=== PATIENT | female | born 1995 | race American Indian/Alaskan Native ===

== ENCOUNTER 2017-02-12 15:48 | Outpatient (CLI) | payer MEDICAID ==
[2017-02-12] MEDS ORDERED: LACTATED RINGERS 500 ML IV ONE (17:45)
[2017-02-12 18:38] VITALS: BP 97/63
== END 2017-02-12 21:00 | disposition home or self-care (01) ==
LOC: EDSTATUS 16:16 → TRG 16:27
PROVIDERS: ATTEND Obstetrics & Gynecology
DX: O9A.312 Physical abuse complicating pregnancy, second trimester (principal); Z3A.27 27 weeks gestation of pregnancy
CPT/HCPCS: 96360; J7120

== ENCOUNTER 2017-03-12 01:05 | Outpatient (CLI) | payer MEDICAID ==
[2017-03-12 01:19] VITALS: BP 115/75
[2017-03-12 02:08] LABS: Bilirubin,Urine NEG (Negative); Blood,Urine NEG (Negative); Ketones,Urine NEG (Negative); Leukocyte Esterase,Urine TR (Negative); Mucus,Urine FEW /HPF; Nitrite,Urine NEG (Negative); Urobilinogen,Urine < 2.0 mg/dL (<2.0)
[2017-03-12] MEDS ORDERED: LACTATED RINGERS 1,000 ML IV SCH (02:11)
== END 2017-03-12 03:36 | disposition home or self-care (01) ==
LOC: TRG 01:05
PROVIDERS: ATTEND Obstetrics & Gynecology
DX: O47.03 False labor before 37 completed weeks of gestation, third trimester (principal); Z3A.31 31 weeks gestation of pregnancy
CPT/HCPCS: 81001; 96360; J7120

== ENCOUNTER 2017-05-05 18:19 | Outpatient (CLI) | payer MEDICAID ==
--- NOTE | 2017-05-06 07:38 | Ultrasound Report ---
ULTRASOUND OB LIMITED History: well being, evaluate amniotic fluid Technique: Transabdominal ultrasound with Doppler interrogation. Gestation: Single Position: Cephalic Amniotic Fluid: Normal LINDA = 14.5 cm Heart Rate: 128 BPM
[2017-05-06] MEDS ORDERED: NACL ONE (17:47)
== END 2017-05-05 20:00 | disposition home or self-care (01) ==
LOC: TRG 18:19
PROVIDERS: ATTEND Obstetrics & Gynecology
DX: O47.1 False labor at or after 37 completed weeks of gestation (principal); Z3A.39 39 weeks gestation of pregnancy
CPT/HCPCS: 76815

== ENCOUNTER 2017-05-11 06:18 | Outpatient (CLI) | payer MEDICAID ==
[2017-05-11 07:30] VITALS: BP 117/49
[2017-05-11] MEDS ORDERED: VISTARIL PO ONE (09:43)
== END 2017-05-11 09:52 | disposition home or self-care (01) ==
LOC: TRG 06:18
PROVIDERS: ATTEND Obstetrics & Gynecology
DX: O47.03 False labor before 37 completed weeks of gestation, third trimester (principal); Z3A.39 39 weeks gestation of pregnancy
CPT/HCPCS: 59025

== ENCOUNTER 2018-01-22 07:57 | Inpatient (IN) | payer MEDICAID ==
[2018-01-22] MEDS ORDERED: NACL 0.9% 1000 ML 1,000 ML IV ONE ×2 (08:37→11:14)
[2018-01-22] MEDS ORDERED: ZOFRAN IV ONE (08:40)
[2018-01-22] MEDS ORDERED: BENADRYL IV ONE (08:51)
[2018-01-22] MEDS ORDERED: REGLAN IV ONE (08:51)
[2018-01-22 08:53] LABS: Hematocrit 44.2 % (30.3-42.9); Hemoglobin 15.2 gm/dl (10.1-14.3); Mean Corpuscular HGB Conc 34 % (30-34); Mean Corpuscular Hemoglobin 29 pg (28-32); Mean Corpuscular Volume 84 fl (79-97); Platelet Count 197 K/mm3 (140-440); Red Blood Count 5.24 M/mm3 (3.65-5.03); Red Cell Distribution Width 13.3 % (13.2-15.2)
[2018-01-22 09:02] LABS: Bilirubin,Urine NEG (Negative); Blood,Urine NEG (Negative); Color,Urine Yellow (Yellow); Mucus,Urine 2+ /HPF; Protein,Urine <15 mg/dL mg/dL (Negative); Urobilinogen,Urine < 2.0 mg/dL (<2.0)
[2018-01-22 09:05] LABS: Albumin 4.6 g/dL (3.9-5); BUN/Creatinine Ratio 32; Blood Urea Nitrogen 19 mg/dL (7-17); Calcium 9.3 mg/dL (8.4-10.2); Hemolysis Index 330
[2018-01-22 09:15] LABS: Alanine Aminotransferase TNR units/L (7-56); Bilirubin,Direct TNR mg/dL (0-0.2)
[2018-01-22 09:42] LABS: Basophils % (Manual) 0 % (0.0-1.8); Eosinophils % (Manual) 0 % (0.0-4.3); RBC Morphology Normal; Total Cells Counted 100
[2018-01-22 10:36] LABS: Lipase 31 units/L (13-60)
--- NOTE | 2018-01-22 10:39 | Emergency Department Report ---
ED Headache HPI - General Chief Complaint: Headache Stated Complaint: HEADACHE Time Seen by Provider: 01/22/18 08:36 - History of Present Illness Initial Comments: 22-year-old female past medical history none presents with complaint of intermittent headaches and nausea which woke her up out of sleep at approximately 1 AM. Patient also complains of body aches and abdominal pain. Denies any vaginal discharge increased urinary frequency or dysuria. Denies any chest pain palpitations or shortness of breath. States she feels slightly weak and dizzy, some associated nausea. Patient is awake alert and oriented 3. Denies any nuchal rigidity. Is able to flex and extend neck without difficulty. Some subjective fever & chills. States one of her family members was recently diagnosed with influenza within the last week and she had contact with them. Also c/o sore throat. Denies any true photophobia phonophobia. Denies any head or abdominal trauma. Patient is ambulatory without assistance. Accompanied by significant other at bedside. Patient is complaining of lower abdominal pain. Has multiple complaints. Patient denies any earache. Timing/Duration: other (8 hours) Head Injury Location: frontal Allergies/Adverse Reactions: Allergies No Known Allergies Allergy (Unverified 02/12/17 17:45) Home Medications: Ambulatory Orders No Known Home Medications [No Reported Home Medications] 01/22/18 ED Review of Systems ROS: Stated complaint: HEADACHE Other details as noted in HPI Constitutional: fever, malaise. denies: chills Eyes: denies: eye pain, eye discharge, vision change ENT: denies: ear pain, throat pain Respiratory: denies: cough, shortness of breath, wheezing Cardiovascular: denies: chest pain, palpitations Endocrine: no symptoms reported Gastrointestinal: abdominal pain, nausea. denies: diarrhea Genitourinary: denies: urgency, dysuria, discharge Musculoskeletal: denies: back pain, joint swelling, arthralgia Skin: denies: rash, lesions Neurological: headache. denies: weakness, paresthesias Psychiatric: denies: anxiety, depression Hematological/Lymphatic: denies: easy bleeding, easy bruising ED Past Medical Hx - Past Medical History Previous Medical History?: No Hx Hypertension: No Hx Congestive Heart Failure: No Hx Diabetes: No Hx Deep Vein Thrombosis: No Hx Renal Disease: No Hx Sickle Cell Disease: No Hx Seizures: No Hx Asthma: No Hx COPD: No Hx HIV: No - Surgical History Past Surgical History?: Yes Additional Surgical History: x 1 - Social History Smoking Status: Current Every Day Smoker Substance Use Type: None - Medications Home Medications: Home Medications Medication Instructions Recorded Confirmed Last Taken Type No Known Home Medications [No 01/22/18 01/22/18 Unknown History Reported Home Medications] ED Physical Exam - General Limitations: No Limitations General appearance: alert, in no apparent distress - Head Head exam: Present: atraumatic, normocephalic - Eye Eye exam: Present: normal appearance, PERRL, EOMI - ENT ENT exam: Present: mucous membranes moist - Neck Neck exam: Present: normal inspection, full ROM (neck flexion and extension is intact there is no nuchal rigidity on clinical exam) - Respiratory Respiratory exam: Present: normal lung sounds bilaterally (lungs clear to auscultation bilaterally). Absent: respiratory distress - Cardiovascular Cardiovascular Exam: Present: regular rate, normal rhythm. Absent: systolic murmur, diastolic murmur, rubs, gallop - GI/Abdominal GI/Abdominal exam: Present: soft (some right lower quadrant/suprapubic discomfort on deep palpation, negative iliopsoas, negative Shepard's sign and right upper quadrant), normal bowel sounds - External exam: Present: normal external exam Speculum exam: Present: vaginal discharge (slightly white vaginal discharge on pelvic exam) Bi-manual exam: Present: normal bi-manual exam (cervical motion tenderness no adnexal tenderness noted on exam) - Extremities Exam Extremities exam: Present: normal inspection - Back Exam Back exam: Present: normal inspection - Neurological Exam Neurological exam: Present: alert, oriented X3, CN II-XII intact, normal gait - Expanded Neurological Exam Expanded Patient oriented to: Present: person, place, time Cranial nerves: EOM's Intact: Normal, Facial Sensation: Normal Cerebellar function: Finger to Nose: Normal, Heel to Freire: Normal, Romberg: Normal Sensory exam: Upper Extremity Light Touch: Normal, Lower Extremity Light Touch: Normal Motor strength exam: RUE: 5, LUE: 5, RLE: 5, LLE: 5 Best Eye Response ([place]): (4) open spontaneously Best Motor Response ([place]): (6) obeys commands Best Verbal Response ([place]): (5) oriented Ingrid Total: 15 - Psychiatric Psychiatric exam: Present: normal affect, normal mood - Skin Skin exam: Present: warm, dry, intact, normal color. Absent: rash ED Course Vital Signs 01/22/18 01/22/18 01/22/18 08:07 10:40 10:46 Temperature 99.8 F H 101.3 F H Pulse Rate 103 H 109 H Respiratory 16 Rate Blood Pressure 104/64 86/45 Blood Pressure [Left] O2 Sat by Pulse 97 97 Oximetry 01/22/18 11:22 Temperature Pulse Rate 104 H Respiratory 18 Rate Blood Pressure Blood Pressure 104/59 [Left] O2 Sat by Pulse 99 Oximetry ED Medical Decision Making - Lab Data Result diagrams: 01/22/18 08:41 01/22/18 11:17 - Medical Decision Making A/P: SIRS criteria, sepsis, abdominal pain, headache, possible flulike viral syndrome, concern for appendicitis 1-case discussed with ED attending Dr Chi and Hospitalist Dr. Dhaliwal 2-as patient has exhibited tachycardia with episode of hypotension and presence of fever and suspected viral syndrome versus suspected appendicitis secondary to abdominal pain on exam I am clinically concerned about this patient. 3-discussed case with Dr. Carlos. CT shows no direct evidence of appendicitis. No periappendiceal inflammation. However appendix is not directly visualized. As patient will be admitted and further managed and monitored Dr. Carlos will follow and possibly repeat CT. As per her exam unlikely appendicitis at this time 4- as patient meets SIRS criteria and sepsis given leukocytosis fever or hypotension and tachycardia will cover her empirically with vancomycin and Zosyn. As patient has had recent positive exposure to influenza despite negative influenza test I will cover her empirically with Tamiflu as she is being admitted to the hospital 5- IV fluid resuscitation. Patient has received 2 L bolus and I ordered maintenance fluid 6- patient is in agreement with clinical plan. Pelvic exam is unremarkable, pelvic ultrasound is unremarkable, Chlamydia and gonorrhea cultures sent, urinalysis urine culture and blood cultures sent. Critical care attestation.: If time is entered above; I have spent that time in minutes in the direct care of this critically ill patient, excluding procedure time. ED Disposition Clinical Impression: SIRS (systemic inflammatory response syndrome), Viral syndrome Sepsis Qualifiers: Sepsis type: sepsis due to unspecified organism Qualified Code(s): A41.9 - Sepsis, unspecified organism Abdominal pain Qualifiers: Abdominal location: right lower quadrant Qualified Code(s): R10.31 - Right lower quadrant pain Headache Qualifiers: Headache type: unspecified Headache chronicity pattern: acute headache Intractability: not intractable Qualified Code(s): R51 - Headache Disposition: DC-09 OP ADMIT IP TO THIS HOSP Is pt being admited?: No Does the pt Need Aspirin: No Condition: Stable Referrals: PRIMARY CARE, [Primary Care Provider] - 3-5 Days Time of Disposition: 15:13
--- NOTE | 2018-01-22 10:49 | Cat Scan Report ---
CT HEAD WITHOUT CONTRAST INDICATION: Acute frontal throbbing headache. COMPARISON: None similar. FINDINGS: Noncontrast head CT demonstrates normal ventricles and sulci without acute or recent infarct, hemorrhage, mass effect or midline shift. No abnormal extra-axial fluid collections. Posterior fossa structures and basilar cisterns appear within normal limits. Symmetric eye globes. Clear paranasal sinuses and mastoid air cells. Mild leftward nasal septal deviation. Intact calvarium. Normal overlying scalp soft tissues. Few radiopaque dental material and a left nasal piercing ornament incidentally noted. CONCLUSION: No acute intracranial CT abnormality, as described. Thank you for the opportunity to participate in this patient's care.
--- NOTE | 2018-01-22 10:56 | Cat Scan Report ---
CT ABDOMEN AND PELVIS WITH CONTRAST INDICATION: Right lower quadrant pain. Evaluate for appendicitis. COMPARISON: None similar. FINDINGS: Abdomen and pelvis CT performed following intravenous administration of 100 cc of Omnipaque 300. LUNG BASES: Slight nonspecific distal esophageal wall prominence/thickening, not excluded for gastroesophageal reflux and/or hiatal hernia, amongst others. ABDOMEN: Left hepatic lobe tip extends into the left upper quadrant. Right hepatic lobe approximately 17.5 cm in midclavicular length. Otherwise unremarkable liver, spleen, gallbladder, pancreas, adrenals, aorta, IVC and kidneys. Nonopacified GI tract evaluation limited, though grossly nonobstructive. Cecum low-lying in the right hemipelvis with mild stool throughout colon/slight constipation. Positive appendix identification difficult in this setting, though no acute inflammatory changes noted in that region. No ascites or size significant adenopathy. PELVIS: Uterus, adnexa/ovaries, urinary bladder and the rectosigmoid suggest physiologic CT appearance. Small left pelvic phlebolith. No free fluid or significant adenopathy. CONCLUSION: No definite acute CT abnormality with few incidental findings as slight distal esophageal prominence/thickening, low-lying cecum in the right hemipelvis and a slightly prominent liver, as described. Please also correlate clinically and with laboratory values. Thank you for the opportunity to participate in this patient's care.
[2018-01-22 11:43] LABS: Alanine Aminotransferase 9 units/L (7-56); BUN/Creatinine Ratio 30; Bilirubin,Direct 0.2 mg/dL (0-0.2); Blood Urea Nitrogen 18 mg/dL (7-17); Calcium 8.3 mg/dL (8.4-10.2); Hemolysis Index 7
[2018-01-22] MEDS ORDERED: VANCOMYCIN/NS 1 GM/250 ML 1 GM/250 ML BAG IV ONE (12:28)
--- NOTE | 2018-01-22 12:45 | Ultrasound Report ---
ULTRASOUND PELVIS DUPLEX DOPPLER COMPLETE - TRANSABDOMINAL AND TRANSVAGINAL: INDICATION: Right-sided adnexal pain. COMPARISON: None similar. FINDINGS: Transabdominal and transvaginal pelvic sonography with spectral Doppler performed in this patient demonstrates a homogenous, anteverted 8.4 x 2.9 x 3.5 cm uterus with endometrial thickness of 0.4 cm, endovaginal image 8. Minimal physiologic pelvic free fluid. Normal imaged urinary bladder. Right ovary is 2.1 x 1.8 x 2 cm and suggests a 1.3 x 0.8 cm peripheral slightly complex hypoechoic cyst, image endovaginal image 24. A 2.8 x 2.1 x 1.4 cm left ovary also suggests possible 2 small slightly complex hypoechoic cysts measuring up to 1.4 x 1 cm, endovaginal image 32. Preserved bilateral ovarian blood flow. CONCLUSION: Physiologic pelvic sonogram, as described. Thank you for the opportunity to participate in this patient's care.
[2018-01-22] MEDS ORDERED: ZOSYN/NS 4.5GM/100ML 4.5 GM/100 ML VIAL IV ONE (13:00)
[2018-01-22] MEDS ORDERED: VANCOMYCIN/0.45 NS 1 GM/250 ML 1 GM/250 ML BAG IV SCH (14:00)
--- NOTE | 2018-01-22 14:46 | Consultation ---
History of Present Illness Consult date: 01/22/18 Chief complaint: abd pain - History of present illness History of present illness: 22 yo F with no PMHX presents to ER with c/o "worst headache of her life" since last night. She states it feels like a migraine and cannot localize the pain. In addition, she had nausea without emesis. She last ate yesterday. She also had some complaints of lower abdominal pain, localized more towards the Right side but this has resolved since she received antiemetics, IVF, and pain medications several hours ago. She still has a headache. She denies neck pain or back pain. She denies pelvic pain, dysuria, or other urinary tract symptoms. She admits to fevers. She had muscle aches. She also has had a sore throat for 2 days. Her mother had the flu recently and she has been exposed to this. Surgery is consulted for RLQ abd pain to r/o appendicitis. Past History Past Medical History: No medical history Past Surgical History: Social history: smoking (marijuana once per week). denies: alcohol abuse, prescription drug abuse, IV drug use Family history: no significant family history Medications and Allergies Allergies Allergy/AdvReac Type Severity Reaction Status Date / Time No Known Allergies Allergy Unverified 02/12/17 17:45 Home Medications Medication Instructions Recorded Confirmed Last Taken Type Ferrous Sulfate [Feosol 325 MG tab] 325 mg PO QDAY #30 tablet 05/23/17 Unknown Rx Ibuprofen [Motrin] 800 mg PO Q6HR PRN #50 tablet 05/23/17 Unknown Rx Oxycodone HCl/Acetaminophen 1 each PO Q6HR PRN #50 tablet 05/23/17 Unknown Rx [Percocet 7.5/325 mg] Active Meds: Active Medications Vancomycin HCl (Vancomycin/0.45 Ns 1 Gm/250 Ml) 1 gm in 250 mls @ 167.007 mls/ hr IV ONCE ROLO Last Admin: 01/22/18 13:57 Dose: 167.007 mls/hr Sodium Chloride (Nacl 0.9% 1000 Ml) 1,000 mls @ 150 mls/hr IV DIRECT ROLO Oseltamivir Phosphate (Tamiflu) 75 mg PO ONCE ONE Stop: 01/22/18 15:02 Review of Systems All systems: negative (10 poiint ROS performed and negative except for that listed above) Exam Vital Signs Temp Pulse Resp BP Pulse Ox 99.8 F H 103 H 16 104/64 97 01/22/18 08:07 01/22/18 08:07 01/22/18 08:07 01/22/18 08:07 01/22/18 08:07 Narrative exam: Gen: AAOx3. NAD Head: NCAT ENT: no scleral icterus or conjunctival pallor CV: S1, s2+ resp: even and unlabored Abd: soft, NT, ND, no r/r/g Ext: no c/c/e Results - Labs 01/22/18 08:41 01/22/18 11:17 Abnormal lab results 01/22/18 01/22/18 01/22/18 Range/Units 08:41 08:41 11:17 WBC 13.4 H (4.5-11.0) K/mm3 RBC 5.24 H (3.65-5.03) M/mm3 Hgb 15.2 H (10.1-14.3) gm/dl Hct 44.2 H (30.3-42.9) % Seg Neuts % (Manual) 92.0 H (40.0-70.0) % Lymphocytes % (Manual) 6.0 L (13.4-35.0) % Seg Neutrophils # Man 12.3 H (1.8-7.7) K/mm3 Lymphocytes # (Manual) 0.8 L (1.2-5.4) K/mm3 Sodium (137-145) mmol/L BUN 19 H (7-17) mg/dL Creatinine 0.6 L (0.7-1.2) mg/dL Glucose 103 H (65-100) mg/dL Calcium (8.4-10.2) mg/dL Total Creatine Kinase 28 L (30-135) units/L Total Protein 8.3 H (6.3-8.2) g/dL 01/22/18 Range/Units 11:17 WBC (4.5-11.0) K/mm3 RBC (3.65-5.03) M/mm3 Hgb (10.1-14.3) gm/dl Hct (30.3-42.9) % Seg Neuts % (Manual) (40.0-70.0) % Lymphocytes % (Manual) (13.4-35.0) % Seg Neutrophils # Man (1.8-7.7) K/mm3 Lymphocytes # (Manual) (1.2-5.4) K/mm3 Sodium 136 L (137-145) mmol/L BUN 18 H (7-17) mg/dL Creatinine 0.6 L (0.7-1.2) mg/dL Glucose (65-100) mg/dL Calcium 8.3 L (8.4-10.2) mg/dL Total Creatine Kinase (30-135) units/L Total Protein (6.3-8.2) g/dL Diabetes panel 01/22/18 01/22/18 Range/Units 08:41 11:17 Sodium 137 136 L (137-145) mmol/L Potassium TNR 4.1 Chloride 98.7 99.1 (98-107) mmol/L Carbon Dioxide 23 23 (22-30) mmol/L BUN 19 H 18 H (7-17) mg/dL Creatinine 0.6 L 0.6 L (0.7-1.2) mg/dL Glucose 103 H 82 (65-100) mg/dL Calcium 9.3 8.3 L (8.4-10.2) mg/dL AST TNR 11 ALT TNR 9 Alkaline Phosphatase TNR 80 Total Protein 8.3 H 6.3 D (6.3-8.2) g/dL Albumin 4.6 4.0 (3.9-5) g/dL Calcium panel 01/22/18 01/22/18 Range/Units 08:41 11:17 Calcium 9.3 8.3 L (8.4-10.2) mg/dL Albumin 4.6 4.0 (3.9-5) g/dL Pituitary panel 01/22/18 01/22/18 Range/Units 08:41 11:17 Sodium 137 136 L (137-145) mmol/L Potassium TNR 4.1 Chloride 98.7 99.1 (98-107) mmol/L Carbon Dioxide 23 23 (22-30) mmol/L BUN 19 H 18 H (7-17) mg/dL Creatinine 0.6 L 0.6 L (0.7-1.2) mg/dL Glucose 103 H 82 (65-100) mg/dL Calcium 9.3 8.3 L (8.4-10.2) mg/dL Adrenal panel 01/22/18 01/22/18 Range/Units 08:41 11:17 Sodium 137 136 L (137-145) mmol/L Potassium TNR 4.1 Chloride 98.7 99.1 (98-107) mmol/L Carbon Dioxide 23 23 (22-30) mmol/L BUN 19 H 18 H (7-17) mg/dL Creatinine 0.6 L 0.6 L (0.7-1.2) mg/dL Glucose 103 H 82 (65-100) mg/dL Calcium 9.3 8.3 L (8.4-10.2) mg/dL Total Bilirubin 0.90 0.70 (0.1-1.2) mg/dL AST TNR 11 ALT TNR 9 Alkaline Phosphatase TNR 80 Total Protein 8.3 H 6.3 D (6.3-8.2) g/dL Albumin 4.6 4.0 (3.9-5) g/dL - Imaging CT scan - abdomen: report reviewed, image reviewed CT scan - pelvis: report reviewed, image reviewed US - pelvic: report reviewed, image reviewed Assessment and Plan 22 yo F with 1. abdominal pain r/o appendicitis 2. migraine 3. muscle aches 4. leukocytosis 5. SIRS 6. dehydration, elevated BUN Plan: 1. CT A/P reviewed with radiologist - no evidence of inflammation in area of appendix, no free fluid. 2. with HPI, physical exam findings and Ct review, appendicitis is unlikely diagnosis 3. pelvic ultrasound obtained and negative 4. ?Influenza - flu test obtained. recommend starting tamiflu 5. bl cx obtained and pending 6. IV abx 7. repeat CBC in am 8. ok to start diet 9. c/w IVF 10. No surgical intervention indicated at this time D/W ER KHOA Boss Thank you for this consultation, please call with questions or concerns.
[2018-01-22] MEDS ORDERED: NACL 0.9% 1000 ML 1,000 ML IV SCH (15:00)
[2018-01-22] MEDS ORDERED: TAMIFLU PO ONE (15:01)
[2018-01-22] MEDS ORDERED: TYLENOL PO ONE (16:04)
[2018-01-22] MEDS ORDERED: NACL 0.9% 1000 ML 1,000 ML ONE (16:23)
[2018-01-22] MEDS ORDERED: TYLENOL ONE (16:23)
--- NOTE | 2018-01-22 19:02 | History and Physical Report ---
History of Present Illness Date of examination: 01/22/18 Date of admission: 01/22/18 14:34 Chief complaint: See Dictated H/p in reports History of present illness: See dictated H/p in reports Past History Past Medical History: No medical history Past Surgical History: Social history: smoking (marijuana once per week). denies: alcohol abuse, prescription drug abuse, IV drug use Family history: no significant family history Medications and Allergies Allergies Allergy/AdvReac Type Severity Reaction Status Date / Time No Known Allergies Allergy Unverified 02/12/17 17:45 Home Medications Medication Instructions Recorded Confirmed Last Taken Type No Known Home Medications [No 01/22/18 01/22/18 Unknown History Reported Home Medications] Active Meds: Active Medications Vancomycin HCl (Vancomycin/0.45 Ns 1 Gm/250 Ml) 1 gm in 250 mls @ 167.007 mls/ hr IV ONCE ROLO Last Admin: 01/22/18 13:57 Dose: 167.007 mls/hr Sodium Chloride (Nacl 0.9% 1000 Ml) 1,000 mls @ 150 mls/hr IV DIRECT ROLO Exam - Constitutional Vitals: Temp Pulse Resp BP Pulse Ox 101.4 F H 112 H 18 93/42 97 01/22/18 15:26 01/22/18 15:26 01/22/18 17:11 01/22/18 15:15 01/22/18 17:11 Results - Labs CBC & Chem 7: 01/22/18 08:41 01/22/18 11:17 Labs: Laboratory Last Values WBC 13.4 K/mm3 (4.5-11.0) H 01/22/18 08:41 RBC 5.24 M/mm3 (3.65-5.03) H 01/22/18 08:41 Hgb 15.2 gm/dl (10.1-14.3) H 01/22/18 08:41 Hct 44.2 % (30.3-42.9) H 01/22/18 08:41 MCV 84 fl (79-97) 01/22/18 08:41 MCH 29 pg (28-32) 01/22/18 08:41 MCHC 34 % (30-34) 01/22/18 08:41 RDW 13.3 % (13.2-15.2) 01/22/18 08:41 Plt Count 197 K/mm3 (140-440) 01/22/18 08:41 Add Manual Diff Complete 01/22/18 08:41 Total Counted 100 01/22/18 08:41 Seg Neutrophils % Rug Inspector 01/22/18 08:41 Seg Neuts % (Manual) 92.0 % (40.0-70.0) H 01/22/18 08:41 Band Neutrophils % 0 % 01/22/18 08:41 Lymphocytes % (Manual) 6.0 % (13.4-35.0) L 01/22/18 08:41 Reactive Lymphs % (Man) 0 % 01/22/18 08:41 Monocytes % (Manual) 2.0 % (0.0-7.3) 01/22/18 08:41 Eosinophils % (Manual) 0 % (0.0-4.3) 01/22/18 08:41 Basophils % (Manual) 0 % (0.0-1.8) 01/22/18 08:41 Metamyelocytes % 0 % 01/22/18 08:41 Myelocytes % 0 % 01/22/18 08:41 Promyelocytes % 0 % 01/22/18 08:41 Blast Cells % 0 % 01/22/18 08:41 Nucleated RBC % Not Reportable 01/22/18 08:41 Seg Neutrophils # Man 12.3 K/mm3 (1.8-7.7) H 01/22/18 08:41 Band Neutrophils # 0.0 K/mm3 01/22/18 08:41 Lymphocytes # (Manual) 0.8 K/mm3 (1.2-5.4) L 01/22/18 08:41 Abs React Lymphs (Man) 0.0 K/mm3 01/22/18 08:41 Monocytes # (Manual) 0.3 K/mm3 (0.0-0.8) 01/22/18 08:41 Eosinophils # (Manual) 0.0 K/mm3 (0.0-0.4) 01/22/18 08:41 Basophils # (Manual) 0.0 K/mm3 (0.0-0.1) 01/22/18 08:41 Metamyelocytes # 0.0 K/mm3 01/22/18 08:41 Myelocytes # 0.0 K/mm3 01/22/18 08:41 Promyelocytes # 0.0 K/mm3 01/22/18 08:41 Blast Cells # 0.0 K/mm3 01/22/18 08:41 WBC Morphology Not Reportable 01/22/18 08:41 Hypersegmented Neuts Not Reportable 01/22/18 08:41 Hyposegmented Neuts Not Reportable 01/22/18 08:41 Hypogranular Neuts Not Reportable 01/22/18 08:41 Smudge Cells Not Reportable 01/22/18 08:41 Toxic Granulation Not Reportable 01/22/18 08:41 Toxic Vacuolation Not Reportable 01/22/18 08:41 Dohle Bodies Not Reportable 01/22/18 08:41 Pelger-Huet Anomaly Not Reportable 01/22/18 08:41 Caro Rods Not Reportable 01/22/18 08:41 Platelet Estimate Appears normal 01/22/18 08:41 Clumped Platelets Not Reportable 01/22/18 08:41 Plt Clumps, EDTA Not Reportable 01/22/18 08:41 Large Platelets Not Reportable 01/22/18 08:41 Giant Platelets Not Reportable 01/22/18 08:41 Platelet Satelliting Not Reportable 01/22/18 08:41 Plt Morphology Comment Not Reportable 01/22/18 08:41 RBC Morphology Normal 01/22/18 08:41 Dimorphic RBCs Not Reportable 01/22/18 08:41 Polychromasia Not Reportable 01/22/18 08:41 Hypochromasia Not Reportable 01/22/18 08:41 Poikilocytosis Not Reportable 01/22/18 08:41 Anisocytosis Not Reportable 01/22/18 08:41 Microcytosis Not Reportable 01/22/18 08:41 Macrocytosis Not Reportable 01/22/18 08:41 Spherocytes Not Reportable 01/22/18 08:41 Pappenheimer Bodies Not Reportable 01/22/18 08:41 Sickle Cells Not Reportable 01/22/18 08:41 Target Cells Not Reportable 01/22/18 08:41 Tear Drop Cells Not Reportable 01/22/18 08:41 Ovalocytes Not Reportable 01/22/18 08:41 Helmet Cells Not Reportable 01/22/18 08:41 [place] Bodies Not Reportable 01/22/18 08:41 [place] Rings Not Reportable 01/22/18 08:41 [place] Cells Not Reportable 01/22/18 08:41 Bite Cells Not Reportable 01/22/18 08:41 Crenated Cell Not Reportable 01/22/18 08:41 Elliptocytes Not Reportable 01/22/18 08:41 Acanthocytes (Spur) Not Reportable 01/22/18 08:41 Rouleaux Not Reportable 01/22/18 08:41 Hemoglobin C Crystals Not Reportable 01/22/18 08:41 Schistocytes Not Reportable 01/22/18 08:41 Malaria parasites Not Reportable 01/22/18 08:41 [place] Bodies Not Reportable 01/22/18 08:41 Hem Pathologist Commnt No 01/22/18 08:41 Sodium 136 mmol/L (137-145) L 01/22/18 11:17 Potassium 4.1 mmol/L (3.6-5.0) 01/22/18 11:17 Chloride 99.1 mmol/L (98-107) 01/22/18 11:17 Carbon Dioxide 23 mmol/L (22-30) 01/22/18 11:17 Anion Gap 18 mmol/L 01/22/18 11:17 BUN 18 mg/dL (7-17) H 01/22/18 11:17 Creatinine 0.6 mg/dL (0.7-1.2) L 01/22/18 11:17 Estimated GFR > 60 ml/min 01/22/18 11:17 BUN/Creatinine Ratio 30 % 01/22/18 11:17 Glucose 82 mg/dL (65-100) 01/22/18 11:17 Lactic Acid 0.50 mmol/L (0.7-2.0) L 01/22/18 15:14 Calcium 8.3 mg/dL (8.4-10.2) L 01/22/18 11:17 Total Bilirubin 0.70 mg/dL (0.1-1.2) 01/22/18 11:17 Direct Bilirubin 0.2 mg/dL (0-0.2) 01/22/18 11:17 Indirect Bilirubin 0.5 mg/dL 01/22/18 11:17 AST 11 units/L (5-40) 01/22/18 11:17 ALT 9 units/L (7-56) 01/22/18 11:17 Alkaline Phosphatase 80 units/L (35-129) 01/22/18 11:17 Total Creatine Kinase 28 units/L (30-135) L 01/22/18 11:17 Total Protein 6.3 g/dL (6.3-8.2) D 01/22/18 11:17 Albumin 4.0 g/dL (3.9-5) 01/22/18 11:17 Albumin/Globulin Ratio 1.7 % 01/22/18 11:17 Amylase 31 units/L (27-131) 01/22/18 10:26 Lipase 31 units/L (13-60) 01/22/18 10:26 HCG, Qual Negative (Negative) 01/22/18 08:43 Urine Color Yellow (Yellow) 01/22/18 08:30 Urine Turbidity Clear (Clear) 01/22/18 08:30 Urine pH 5.0 (5.0-7.0) 01/22/18 08:30 Ur Specific Call 1.029 (1.003-1.030) 01/22/18 08:30 Urine Protein <15 mg/dl mg/dL (Negative) 01/22/18 08:30 Urine Glucose (UA) Neg mg/dL (Negative) 01/22/18 08:30 Urine Ketones 80 mg/dL (Negative) 01/22/18 08:30 Urine Blood Neg (Negative) 01/22/18 08:30 Urine Nitrite Neg (Negative) 01/22/18 08:30 Urine Bilirubin Neg (Negative) 01/22/18 08:30 Urine Urobilinogen < 2.0 mg/dL (<2.0) 01/22/18 08:30 Ur Leukocyte Esterase Tr (Negative) 01/22/18 08:30 Urine WBC (Auto) 1.0 /HPF (0.0-6.0) 01/22/18 08:30 Urine RBC (Auto) 3.0 /HPF (0.0-6.0) 01/22/18 08:30 U Epithel Cells (Auto) 2.0 /HPF (0-13.0) 01/22/18 08:30 Urine Mucus 2+ /HPF 01/22/18 08:30 Influenza A (Rapid) Negative (Negative) 01/22/18 Unknown Influenza B (Rapid) Negative (Negative) 01/22/18 Unknown Group A Strep Rapid Negative (Negative) 01/22/18 Unknown
[2018-01-22] MEDS ORDERED: PERCOCET 5/325 PO PRN (19:03)
[2018-01-22] MEDS ORDERED: MORPHINE IV PRN (19:03)
[2018-01-22] MEDS ORDERED: REGLAN IV PRN (19:03)
[2018-01-22] MEDS ORDERED: TYLENOL PO PRN (19:03)
[2018-01-22] MEDS ORDERED: SODIUM CHLORIDE FLUSH SYRINGE 10 ML IV PRN (19:03)
[2018-01-22] MEDS ORDERED: ZOFRAN IV PRN (19:03)
[2018-01-22] MEDS ORDERED: DILAUDID IV PRN (19:03)
[2018-01-22] MEDS ORDERED: VANCOMYCIN PHARMACY TO DOSE IV SCH (20:00)
[2018-01-22] MEDS ORDERED: D5NS 1,000 ML IV SCH (20:00)
[2018-01-22] MEDS ORDERED: ZOSYN/NS 3.375GM/50ML 3.375 GM/50 ML BAG IV SCH (22:00)
[2018-01-23] MEDS: SODIUM CHLORIDE FLUSH SYRINGE 10 ML IV SCH ×3 (00:55→23:20)
[2018-01-23] MEDS: ZOSYN/NS 4.5GM/100ML 4.5 GM/100 ML VIAL IV SCH ×4 (00:55→23:20)
[2018-01-23] MEDS: PEPCID PO SCH ×3 (00:56→23:21)
[2018-01-23] MEDS ORDERED: VANCOMYCIN 750 MG in NACL 0.9% 250ML 250 ML IV SCH (01:00)
[2018-01-23 07:23] LABS: Basophils % (Auto) 0.4 % (0.0-1.8); Eosinophils # (Auto) 0.2 K/mm3 (0.0-0.4); Eosinophils % (Auto) 2.1 % (0.0-4.3); Hemoglobin 12.3 gm/dl (10.1-14.3); Lymphocytes # (Auto) 0.7 K/mm3 (1.2-5.4); Lymphocytes % (Auto) 9.7 % (13.4-35.0); Mean Corpuscular HGB Conc 34 % (30-34); Mean Corpuscular Hemoglobin 29 pg (28-32); Mean Corpuscular Volume 86 fl (79-97); Monocytes # (Auto) 0.5 K/mm3 (0.0-0.8); Monocytes % (Auto) 7.1 % (0.0-7.3); Platelet Count 153 K/mm3 (140-440); Red Blood Count 4.17 M/mm3 (3.65-5.03); Red Cell Distribution Width 13.4 % (13.2-15.2)
[2018-01-23 07:45] LABS: Alanine Aminotransferase 11 units/L (7-56); Albumin 3.3 g/dL (3.9-5); BUN/Creatinine Ratio 18; Blood Urea Nitrogen 9 mg/dL (7-17); Calcium 8.2 mg/dL (8.4-10.2); Hemolysis Index 2
--- NOTE | 2018-01-23 07:53 | Progress Note ---
Assessment and Plan Assessment and plan: The patient is a 22-year-old woman with a history of tobacco dependency and is 8 months (still fgnqwa-umsdsnd-mwxhms pump at bedside) who presented to ED with headaches and sore throat. Initial concern was a appendicitis and following were done: CT abd/pelvis w/ contrast CONCLUSION: No definite acute CT abnormality with few incidental findings as slight distal esophageal prominence/thickening, low- lying cecum in the right hemipelvis and a slightly prominent liver, as described. Please also correlate clinically and with laboratory values. CT head wo contrast no acute intracranial findings US tranvaginal FINDINGS: Transabdominal and transvaginal pelvic sonography with spectral Doppler performed in this patient demonstrates a homogenous, anteverted 8.4 x 2.9 x 3.5 cm uterus with endometrial thickness of 0.4 cm, endovaginal image 8. Minimal physiologic pelvic free fluid. Normal imaged urinary bladder. Right ovary is 2.1 x 1.8 x 2 cm and suggests a 1.3 x 0.8 cm peripheral slightly complex hypoechoic cyst, image endovaginal image 24. A 2.8 x 2.1 x 1.4 cm left ovary also suggests possible 2 small slightly complex hypoechoic cysts measuring up to 1.4 x 1 cm, endovaginal image 32. Preserved bilateral ovarian blood flow. CONCLUSION: Physiologic pelvic sonogram, as described. Ordered pCXR, unremarkable UA trace LE, normal WBC -Sepsis due to peritonsilar abscess, poa: no ENT here (?need drainage), I called [facility] [place], spoke with Alistair. Continue to treat with iv abx. -Tobacco dependancy: advised to stop - period and still . History Interval history: Patient was seen and examined. Follow-up on current diagnosis. Overnight uneventful. Patient denies any chest pain, shortness breath, nausea/vomiting or severe headaches. Imaging, nursing note, chart, labs and old chart reviewed. Discussed with patient. Complains of sore throat Hospitalist Physical - Physical exam Narrative exam: GEN: WDWN, NAD, AWAKE, ALERT, ORIENTATED 3 HEENT: NCAT, EOMI, PERRL, OP abnormal with pus seen on enlarged left tonsils, airways patent though NECK: supple, no adenopathy, no thyromegaly, no JVD CVS/HEART: RRR, NORMAL S1S2, pulses present bilaterally CHEST/LUNGS: CTA B, Symmetrical chest expansion, good air entry bilaterally GI/Abdomen: soft, NTND, good bowel sounds, no guarding or rebound /Bladder: no suprapubic tenderness, no CVA or paraspinal tenderness EXT/Skin: no c/c/e, no obvious rash MSK: FROM x 4 Neuro: CN 2-12 grossly intact, no new focal deficits Psych: calm - Constitutional Vitals: Temp Pulse Resp BP Pulse Ox 98.4 F 72 18 155/92 97 01/22/18 20:32 01/22/18 20:32 01/22/18 21:48 01/22/18 20:32 01/22/18 20:32 Results - Labs CBC & Chem 7: 01/23/18 06:31 01/23/18 06:31 Labs: Laboratory Last Values WBC 7.7 K/mm3 (4.5-11.0) 01/23/18 06:31 RBC 4.17 M/mm3 (3.65-5.03) 01/23/18 06:31 Hgb 12.3 gm/dl (10.1-14.3) 01/23/18 06:31 Hct 39.0 % (30.3-42.9) 01/23/18 06:31 MCV 86 fl (79-97) 01/23/18 06:31 MCH 29 pg (28-32) 01/23/18 06:31 MCHC 34 % (30-34) 01/23/18 06:31 RDW 13.4 % (13.2-15.2) 01/23/18 06:31 Plt Count 153 K/mm3 (140-440) 01/23/18 06:31 Lymph % (Auto) 9.7 % (13.4-35.0) L 01/23/18 06:31 [place] % (Auto) 7.1 % (0.0-7.3) 01/23/18 06:31 Eos % (Auto) 2.1 % (0.0-4.3) 01/23/18 06:31 Baso % (Auto) 0.4 % (0.0-1.8) 01/23/18 06:31 Lymph # 0.7 K/mm3 (1.2-5.4) L 01/23/18 06:31 [place] # 0.5 K/mm3 (0.0-0.8) 01/23/18 06:31 Eos # 0.2 K/mm3 (0.0-0.4) 01/23/18 06:31 Baso # 0.0 K/mm3 (0.0-0.1) 01/23/18 06:31 Add Manual Diff Complete 01/22/18 08:41 Total Counted 100 01/22/18 08:41 Seg Neutrophils % 80.7 % (40.0-70.0) H 01/23/18 06:31 Seg Neuts % (Manual) 92.0 % (40.0-70.0) H 01/22/18 08:41 Band Neutrophils % 0 % 01/22/18 08:41 Lymphocytes % (Manual) 6.0 % (13.4-35.0) L 01/22/18 08:41 Reactive Lymphs % (Man) 0 % 01/22/18 08:41 Monocytes % (Manual) 2.0 % (0.0-7.3) 01/22/18 08:41 Eosinophils % (Manual) 0 % (0.0-4.3) 01/22/18 08:41 Basophils % (Manual) 0 % (0.0-1.8) 01/22/18 08:41 Metamyelocytes % 0 % 01/22/18 08:41 Myelocytes % 0 % 01/22/18 08:41 Promyelocytes % 0 % 01/22/18 08:41 Blast Cells % 0 % 01/22/18 08:41 Nucleated RBC % Not Reportable 01/22/18 08:41 Seg Neutrophils # 6.2 K/mm3 (1.8-7.7) 01/23/18 06:31 Seg Neutrophils # Man 12.3 K/mm3 (1.8-7.7) H 01/22/18 08:41 Band Neutrophils # 0.0 K/mm3 01/22/18 08:41 Lymphocytes # (Manual) 0.8 K/mm3 (1.2-5.4) L 01/22/18 08:41 Abs React Lymphs (Man) 0.0 K/mm3 01/22/18 08:41 Monocytes # (Manual) 0.3 K/mm3 (0.0-0.8) 01/22/18 08:41 Eosinophils # (Manual) 0.0 K/mm3 (0.0-0.4) 01/22/18 08:41 Basophils # (Manual) 0.0 K/mm3 (0.0-0.1) 01/22/18 08:41 Metamyelocytes # 0.0 K/mm3 01/22/18 08:41 Myelocytes # 0.0 K/mm3 01/22/18 08:41 Promyelocytes # 0.0 K/mm3 01/22/18 08:41 Blast Cells # 0.0 K/mm3 01/22/18 08:41 WBC Morphology Not Reportable 01/22/18 08:41 Hypersegmented Neuts Not Reportable 01/22/18 08:41 Hyposegmented Neuts Not Reportable 01/22/18 08:41 Hypogranular Neuts Not Reportable 01/22/18 08:41 Smudge Cells Not Reportable 01/22/18 08:41 Toxic Granulation Not Reportable 01/22/18 08:41 Toxic Vacuolation Not Reportable 01/22/18 08:41 Dohle Bodies Not Reportable 01/22/18 08:41 Pelger-Huet Anomaly Not Reportable 01/22/18 08:41 Caro Rods Not Reportable 01/22/18 08:41 Platelet Estimate Appears normal 01/22/18 08:41 Clumped Platelets Not Reportable 01/22/18 08:41 Plt Clumps, EDTA Not Reportable 01/22/18 08:41 Large Platelets Not Reportable 01/22/18 08:41 Giant Platelets Not Reportable 01/22/18 08:41 Platelet Satelliting Not Reportable 01/22/18 08:41 Plt Morphology Comment Not Reportable 01/22/18 08:41 RBC Morphology Normal 01/22/18 08:41 Dimorphic RBCs Not Reportable 01/22/18 08:41 Polychromasia Not Reportable 01/22/18 08:41 Hypochromasia Not Reportable 01/22/18 08:41 Poikilocytosis Not Reportable 01/22/18 08:41 Anisocytosis Not Reportable 01/22/18 08:41 Microcytosis Not Reportable 01/22/18 08:41 Macrocytosis Not Reportable 01/22/18 08:41 Spherocytes Not Reportable 01/22/18 08:41 Pappenheimer Bodies Not Reportable 01/22/18 08:41 Sickle Cells Not Reportable 01/22/18 08:41 Target Cells Not Reportable 01/22/18 08:41 Tear Drop Cells Not Reportable 01/22/18 08:41 Ovalocytes Not Reportable 01/22/18 08:41 Helmet Cells Not Reportable 01/22/18 08:41 [place] Bodies Not Reportable 01/22/18 08:41 [place] Rings Not Reportable 01/22/18 08:41 [place] Cells Not Reportable 01/22/18 08:41 Bite Cells Not Reportable 01/22/18 08:41 Crenated Cell Not Reportable 01/22/18 08:41 Elliptocytes Not Reportable 01/22/18 08:41 Acanthocytes (Spur) Not Reportable 01/22/18 08:41 Rouleaux Not Reportable 01/22/18 08:41 Hemoglobin C Crystals Not Reportable 01/22/18 08:41 Schistocytes Not Reportable 01/22/18 08:41 Malaria parasites Not Reportable 01/22/18 08:41 [place] Bodies Not Reportable 01/22/18 08:41 Hem Pathologist Commnt No 01/22/18 08:41 Sodium 139 mmol/L (137-145) 01/23/18 06:31 Potassium 3.3 mmol/L (3.6-5.0) L 01/23/18 06:31 Chloride 105.4 mmol/L (98-107) 01/23/18 06:31 Carbon Dioxide 23 mmol/L (22-30) 01/23/18 06:31 Anion Gap 14 mmol/L 01/23/18 06:31 BUN 9 mg/dL (7-17) 01/23/18 06:31 Creatinine 0.5 mg/dL (0.7-1.2) L 01/23/18 06:31 Estimated GFR > 60 ml/min 01/23/18 06:31 BUN/Creatinine Ratio 18 % 01/23/18 06:31 Glucose 107 mg/dL (65-100) H 01/23/18 06:31 Lactic Acid 0.50 mmol/L (0.7-2.0) L 01/22/18 15:14 Calcium 8.2 mg/dL (8.4-10.2) L 01/23/18 06:31 Total Bilirubin 0.40 mg/dL (0.1-1.2) 01/23/18 06:31 Direct Bilirubin 0.2 mg/dL (0-0.2) 01/22/18 11:17 Indirect Bilirubin 0.5 mg/dL 01/22/18 11:17 AST 12 units/L (5-40) 01/23/18 06:31 ALT 11 units/L (7-56) 01/23/18 06:31 Alkaline Phosphatase 64 units/L (35-129) 01/23/18 06:31 Total Creatine Kinase 28 units/L (30-135) L 01/22/18 11:17 Total Protein 5.7 g/dL (6.3-8.2) L 01/23/18 06:31 Albumin 3.3 g/dL (3.9-5) L 01/23/18 06:31 Albumin/Globulin Ratio 1.4 % 01/23/18 06:31 Amylase 31 units/L (27-131) 01/22/18 10:26 Lipase 31 units/L (13-60) 01/22/18 10:26 HCG, Qual Negative (Negative) 01/22/18 08:43 Urine Color Yellow (Yellow) 01/22/18 08:30 Urine Turbidity Clear (Clear) 01/22/18 08:30 Urine pH 5.0 (5.0-7.0) 01/22/18 08:30 Ur Specific [place] 1.029 (1.003-1.030) 01/22/18 08:30 Urine Protein <15 mg/dl mg/dL (Negative) 01/22/18 08:30 Urine Glucose (UA) Neg mg/dL (Negative) 01/22/18 08:30 Urine Ketones 80 mg/dL (Negative) 01/22/18 08:30 Urine Blood Neg (Negative) 01/22/18 08:30 Urine Nitrite Neg (Negative) 01/22/18 08:30 Urine Bilirubin Neg (Negative) 01/22/18 08:30 Urine Urobilinogen < 2.0 mg/dL (<2.0) 01/22/18 08:30 Ur Leukocyte Esterase Tr (Negative) 01/22/18 08:30 Urine WBC (Auto) 1.0 /HPF (0.0-6.0) 01/22/18 08:30 Urine RBC (Auto) 3.0 /HPF (0.0-6.0) 01/22/18 08:30 U Epithel Cells (Auto) 2.0 /HPF (0-13.0) 01/22/18 08:30 Urine Mucus 2+ /HPF 01/22/18 08:30 Influenza A (Rapid) Negative (Negative) 01/22/18 Unknown Influenza B (Rapid) Negative (Negative) 01/22/18 Unknown Group A Strep Rapid Negative (Negative) 01/22/18 Unknown
--- NOTE | 2018-01-23 09:26 | XRay Report ---
AP CHEST: HISTORY: Sepsis AP view of the chest demonstrates a normal mediastinal and cardiac contour with clear lungs and normal bony and soft tissue structures. IMPRESSION: Unremarkable AP chest.
[2018-01-23] MEDS ORDERED: HABITROL TD SCH (10:00)
--- NOTE | 2018-01-23 12:38 | History and Physical Report ---
CHIEF COMPLAINT: Headache and fever since 1:00 a.m. HISTORY OF PRESENT ILLNESS: A 22-year-old female with no significant past medical history, comes in for headache and nausea and fever since 1:00 a.m. Also, complains of body aches and generalized abdominal pain. The patient has fever and chills. He denies any rigors or discharge or any increased urinary frequency or dysuria. He feels weak and dizzy. Some nausea present. No neck pain or neck stiffness. The patient says that she was recently exposed to influenza from family members. Also complains of sore throat. Body aches all over. Pain is about 6 on a scale of 1 to 10. PAST MEDICAL HISTORY: No significant past medical history. PAST SURGICAL HISTORY: x 1. SOCIAL HISTORY: He smokes over a pack a day. FAMILY HISTORY: Noncontributory. REVIEW OF SYSTEMS: Significant for fever, chills, headache, generalized body pains and generalized abdominal pain associated with nausea. No vomiting. No urgency, no dysuria, no flank pain. A 14-point review of systems done. Otherwise, negative. PHYSICAL EXAMINATION: GENERAL: Young female, in slight distress secondary to discomfort. VITAL SIGNS: Blood pressure was 89/46 and 87/53, which is improved to 128/83, temperature is 99.9 initially, heart rate is 104, and respiratory rate is 18. HEENT: Unremarkable. Posterior pharynx is normal. NECK: Supple, no lymphadenopathy, no thyromegaly. No neck stiffness. LUNGS: Scattered rhonchi bilaterally. Good air entry. CARDIOVASCULAR: S1, S2 heard. No gallop, no murmur, no rub. Apical impulse in left fifth intercostal space and midclavicular line. ABDOMEN: Soft. No right upper quadrant tenderness. No guarding. Bowel sounds are normal. EXTREMITIES: Good pedal pulses. Good range of motion. CENTRAL NERVOUS SYSTEM: Alert and oriented x 4, nonfocal exam. LABORATORY DATA: Significant for white count of 13,400, H and H are 15.2 and 44.2. BUN and creatinine are 18 and 0.6, bicarbonate is 23, anion gap is about 12. Urine shows no white cells. Rapid influenza test is negative. A chest x-ray was negative. Abdominal pelvis CT was no acute appendicitis. ASSESSMENT AND PLAN: 1. Sepsis. The patient qualifies for systemic inflammatory response syndrome and sepsis. The patient was hypotensive initially, improved with IV fluids and IV antibiotics. The patient initiated on IV Zosyn and vancomycin and IV fluids. A surgical consult requested. ID consult requested. Supportive care. Regular diet also initiated. Blood cultures to be checked. Urine cultures to be checked. 2. DVT prophylaxis, Lovenox/heparin started. 3. Nicotine dependence. The patient counseled. Nicoderm patch initiated. 4. Isolation precautions were initiated. JOB# [id number] VSM/NTS
[2018-01-23] MEDS: VANCOMYCIN 750 MG in NACL 0.9% 250ML 250 ML IV SCH ×2 (13:00→23:21)
[2018-01-23] MEDS ORDERED: K-DUR PO ONE (14:00)
--- NOTE | 2018-01-23 15:55 | Discharge Summary ---
Providers - Providers Date of Admission: 01/22/18 14:34 Date of discharge: 01/23/18 Attending physician: LUIS ANGEL ATKINS 01/22/18 19:03 Consult to Physician [CONS] Routine Comment: Consulting Provider: NANCY MIKE Physician Instructions: Reason For Exam: SIRS Primary care physician: LOOM STARTER Hospitalization Condition: Stable Hospital course: The patient is a 22-year-old woman with a history of tobacco dependency and is 8 months (still pbrheu-ceanhrs-rucwjq pump at bedside) who presented to ED with headaches and sore throat. Initial concern was a appendicitis and following were done: CT abd/pelvis w/ contrast CONCLUSION: No definite acute CT abnormality with few incidental findings as slight distal esophageal prominence/thickening, low- lying cecum in the right hemipelvis and a slightly prominent liver, as described. Please also correlate clinically and with laboratory values. CT head wo contrast no acute intracranial findings US tranvaginal FINDINGS: Transabdominal and transvaginal pelvic sonography with spectral Doppler performed in this patient demonstrates a homogenous, anteverted 8.4 x 2.9 x 3.5 cm uterus with endometrial thickness of 0.4 cm, endovaginal image 8. Minimal physiologic pelvic free fluid. Normal imaged urinary bladder. Right ovary is 2.1 x 1.8 x 2 cm and suggests a 1.3 x 0.8 cm peripheral slightly complex hypoechoic cyst, image endovaginal image 24. A 2.8 x 2.1 x 1.4 cm left ovary also suggests possible 2 small slightly complex hypoechoic cysts measuring up to 1.4 x 1 cm, endovaginal image 32. Preserved bilateral ovarian blood flow. CONCLUSION: Physiologic pelvic sonogram, as described. Ordered pCXR, unremarkable UA trace LE, normal WBC -Sepsis due to peritonsilar abscess, poa: no ENT here (?need drainage), I called [facility] for possible transfer, spoke with Alistair. Continue to treat with iv abx. -Tobacco dependancy: advised to stop - period and still . [facility] main accepted patient Dr. Hathaway, ENT Dr. Irby will see in consultation. He recommends steroids and iv abx and possible drainage later. Family refused [facility] main transfer, so I got her accepted at [facility] (family choice), accepted by Dr. Stanton Bartholomew. Disposition: [id number]/TX-[id number] ANOTHER TYPE HLTHCARE Time spent for discharge: 35 minutes Core Measure Documentation - Palliative Care Palliative Care/ Comfort Measures: Not Applicable - Core Measures Any of the following diagnoses?: none - VTE Discharge Requirements Deep Vein Thrombosis/Pulmonary Embolism Present on Admission: No Has pt received <5 days of overlap therapy or INR<2.0: No Anticoagulant overlap therapy prescribed at discharge: No Contraindication No Overlap Therapy order at DC: Not Indicated Exam - Physical Exam Narrative exam: GEN: WDWN, NAD, AWAKE, ALERT, ORIENTATED 3 HEENT: NCAT, EOMI, PERRL, OP abnormal with pus seen on enlarged left tonsils, airways patent though NECK: supple, no adenopathy, no thyromegaly, no JVD CVS/HEART: RRR, NORMAL S1S2, pulses present bilaterally CHEST/LUNGS: CTA B, Symmetrical chest expansion, good air entry bilaterally GI/Abdomen: soft, NTND, good bowel sounds, no guarding or rebound /Bladder: no suprapubic tenderness, no CVA or paraspinal tenderness EXT/Skin: no c/c/e, no obvious rash MSK: FROM x 4 Neuro: CN 2-12 grossly intact, no new focal deficits Psych: calm - Constitutional Vitals: Temp Pulse Resp BP Pulse Ox 98.4 F 72 18 155/92 97 01/22/18 20:32 01/22/18 20:32 01/23/18 10:00 01/22/18 20:32 01/22/18 20:32 Plan Follow up with: PRIMARY MD ELZBIETA [Primary Care Provider] - 3-5 Days
[2018-01-23] MEDS ORDERED: LOVENOX SUB-Q SCH (22:00)
[2018-01-23 23:38] VITALS: BP 105/80
== END 2018-01-24 01:54 | disposition home or self-care (01) | DRG 872 ==
LOC: ED 07:57 → 3A 14:34
PROVIDERS: ADMIT Internal Medicine; ATTEND Internal Medicine
DX: A41.9 Sepsis, unspecified organism (principal); F17.210 Nicotine dependence, cigarettes, uncomplicated; B34.9 Viral infection, unspecified; G43.909 Migraine, unspecified, not intractable, without status migrainosus; M79.1 Myalgia; E86.0 Dehydration; J36 Peritonsillar abscess; F12.90 Cannabis use, unspecified, uncomplicated
CPT/HCPCS: 36415; 70450; 71045; 74177; 76830; 80048; 80053; 80074; 81001; 82140; 82150; 82550; 83690; 84703; 85007; 85025; 87040; 87116; 87210; 87400; 87430; 87591; 93975; J1200; J2543; J2765; J2930; J3370; J7030; J7042; J7050; Q9967